=== PATIENT | male | born 1960 | race African-American/Black ===

== ENCOUNTER → 2023-03-02 | Day surgery (SDC) | payer BC ==
[~2023-03-02] VITALS: Ht 175.3 cm; Wt 101.5 kg
[~2023-03-02] MED LIST: CVS2500C PO; FLINCHW14 PO; LIDOCAINE 2% 100MG/5ML SDV (FOR ANES.) As Ordered ONE; NS 1,000 ML IV ONE; VITA100065 PO; VITA200012 PO; fentaNYL 100 MCG/2 ML INJECTION As Ordered ONE; propofoL 200 MG/20 ML VIAL As Ordered ONE
[2023-03-02 10:15] VITALS: BP 142/82; TEMP 97.2; O2SAT 97
== END | disposition home or self-care (01) ==
LOC: M OPP 06:57 → EDUNIT# 12:30
PROVIDERS: ATTEND Internal Medicine Gastroenterology
DX: C18.4 Malignant neoplasm of transverse colon (principal); K56.691 Other complete intestinal obstruction; D50.9 Iron deficiency anemia, unspecified; K57.30 Diverticulosis of large intestine without perforation or abscess without bleeding; K64.4 Residual hemorrhoidal skin tags; K64.8 Other hemorrhoids; D37.4 Neoplasm of uncertain behavior of colon; R19.5 Other fecal abnormalities; K29.70 Gastritis, unspecified, without bleeding; K31.89 Other diseases of stomach and duodenum; R93.3 Abnormal findings on diagnostic imaging of other parts of digestive tract; G47.9 Sleep disorder, unspecified
CPT/HCPCS: 43239; 45381; 45385; 88305; J3010

== ENCOUNTER 2023-04-15 09:34 | Outpatient (CLI) | payer BC ==
[2023-04-15] VITALS (7 sets, daily range): BP systolic 130–161; BP diastolic 60–74; TEMP 97.6–98.5; O2SAT 99–100
[~2023-04-15] VITALS: Ht 175.3 cm; Wt 94.8 kg
[~2023-04-15 09:34] MED LIST changes: -LIDOCAINE 2% 100MG/5ML SDV (FOR ANES.) As Ordered ONE; -NS 1,000 ML IV ONE; +VITA1CAP21 PO; +VITA400C49; -fentaNYL 100 MCG/2 ML INJECTION As Ordered ONE; -propofoL 200 MG/20 ML VIAL As Ordered ONE
[2023-04-15] MEDS ORDERED: NS 250 ML IV ONE (09:50)
[2023-04-15] MEDS: diphenhydrAMINE 25MG CAP PO ONE ×2 (10:00→10:03)
[2023-04-15] MEDS: ACETAMINOPHEN TAB 650MG DOSE (2X325MG) PO ONE ×2 (10:00→10:03)
== END 2023-04-15 14:30 ==
LOC: M INFU 09:34
PROVIDERS: ATTEND Internal Medicine Medical Oncology
DX: K31.89 Other diseases of stomach and duodenum (principal)
CPT/HCPCS: 36430; P9016

== ENCOUNTER 2023-04-22 13:50 | Emergency (ER) | payer BC ==
[~2023-04-22] VITALS: Ht 175.3 cm; Wt 90.7 kg
[2023-04-22 14:54] LABS: BASO % 0.2 % (0.0-1.0); EOS % 0.4 % (0.0-3.0); HEMATOCRIT 32.3 % (42.0-52.0); HEMOGLOBIN 9.7 g/dl (13.5-17.5); MEAN CORPUSCULAR HEMOGLOBIN 16.6 pg (27.0-33.0); MEAN CORPUSCULAR VOLUME 55.1 fl (80.0-96.0); MONO # 0.6 10^3/uL (0.0-0.8); MONO % 6.5 % (2.0-8.0); NEUTROPHILS # 5.4 10^3/uL (1.5-8.5); NEUTROPHILS % 59.7 % (36.0-66.0); PLATELET COUNT, AUTOMATED 493 10^3/uL (150-450); RED BLOOD COUNT 5.86 10^6/uL (4.30-6.10); WHITE BLOOD COUNT 9.1 10^3/uL (4.0-10.0)
[2023-04-22 15:03] LABS: LIPASE 20 U/L (12-53)
[2023-04-22 15:05] LABS: ALBUMIN 3.9 G/DL (3.2-5.2); ALKALINE PHOSPHATASE 95 U/L (46-116); ALT/SGPT 13 U/L (7.0-40); AST/SGOT 11 U/L (<34); BILIRUBIN,DIRECT 0.1 MG/DL (<0.4); BILIRUBIN,TOTAL 0.5 MG/DL (0.3-1.2); BLOOD UREA NITROGEN 33 MG/DL (9-23); CALCIUM LEVEL 9.1 MG/DL (8.3-10.6); CARBON DIOXIDE LEVEL 23 MMOL/L (20-31); CHLORIDE LEVEL 104 MMOL/L (98-107); CREATININE FOR GFR 1.37 MG/DL (0.70-1.30); GLOMERULAR FILTRATION RATE > 60.0 (>49); GLUCOSE, FASTING 116 MG/DL (74-106); SODIUM LEVEL 135 MMOL/L (136-145)
[2023-04-22] MEDS ORDERED: NS 1,000 ML IV ONE (15:10)
[2023-04-22] MEDS: GASTROGRAFIN SOLUTION 30ML PO SCH ×2 (15:34→16:05)
[2023-04-22] MEDS ORDERED: ISOVUE-370 76% 100ML VIAL As Ordered ONE (17:05)
[2023-04-22 18:45] VITALS: BP 137/76; TEMP 96.9; O2SAT 98
== END 2023-04-22 19:19 | disposition home or self-care (01) ==
LOC: M ED 13:50
DX: R93.3 Abnormal findings on diagnostic imaging of other parts of digestive tract (principal); R19.00 Intra-abdominal and pelvic swelling, mass and lump, unspecified site; R79.9 Abnormal finding of blood chemistry, unspecified; C18.9 Malignant neoplasm of colon, unspecified; Z91.013 Allergy to seafood
CPT/HCPCS: 74177; 80048; 80076; 83605; 83690; 85025; 93005; 96360; 99284; Q9963; Q9967

== ENCOUNTER → 2023-04-27 | Outpatient (CLI) | payer BC | LOC: M PLARAD 07:53 | PROVIDERS: ATTEND Internal Medicine Gastroenterology | DX: R93.3 Abnormal findings on diagnostic imaging of other parts of digestive tract (principal); C18.4 Malignant neoplasm of transverse colon; D37.1 Neoplasm of uncertain behavior of stomach ==

== ENCOUNTER 2023-05-17 12:07 | Emergency (ER) | payer BC ==
[~2023-05-17] VITALS: Ht 175.3 cm; Wt 90.9 kg
[2023-05-17 12:57] LABS: BASO % 0.2 % (0.0-1.0); EOS # 0.1 10^3/uL (0.0-0.5); EOS % 0.3 % (0.0-3.0); HEMATOCRIT 37.5 % (42.0-52.0); HEMOGLOBIN 10.6 g/dl (13.5-17.5); LYMPH # 2.7 10^3/uL (1.5-5.0); LYMPH % 15.9 % (24.0-44.0); MEAN CORPUSCULAR HEMOGLOBIN 16.5 pg (27.0-33.0); MEAN CORPUSCULAR HGB CONC 28.3 g/dl (32.0-36.5); MEAN CORPUSCULAR VOLUME 58.2 fl (80.0-96.0); MONO # 0.6 10^3/uL (0.0-0.8); MONO % 3.3 % (2.0-8.0); NEUTROPHILS # 13.7 10^3/uL (1.5-8.5); NEUTROPHILS % 79.8 % (36.0-66.0); PLATELET COUNT, AUTOMATED 527 10^3/uL (150-450); RED BLOOD COUNT 6.44 10^6/uL (4.30-6.10); WHITE BLOOD COUNT 17.2 10^3/uL (4.0-10.0)
[2023-05-17 13:14] LABS: ETHYL ALCOHOL (ETHANOL) < 0.003 % (0.000-0.010)
[2023-05-17 13:16] LABS: ALBUMIN 3.9 G/DL (3.2-5.2); ALKALINE PHOSPHATASE 92 U/L (46-116); ALT/SGPT 16 U/L (7.0-40); AST/SGOT 16 U/L (<34); BILIRUBIN,DIRECT 0.1 MG/DL (<0.4); BILIRUBIN,TOTAL 0.4 MG/DL (0.3-1.2); BLOOD UREA NITROGEN 13 MG/DL (9-23); CALCIUM LEVEL 9.4 MG/DL (8.3-10.6); CARBON DIOXIDE LEVEL 24 MMOL/L (20-31); CHLORIDE LEVEL 103 MMOL/L (98-107); CK-MB VALUE MASS 1.9 NG/ML (<3.6); CREATININE FOR GFR 1.13 MG/DL (0.70-1.30); GLOMERULAR FILTRATION RATE > 60.0 (>49); GLUCOSE, FASTING 180 MG/DL (74-106); POTASSIUM SERUM 4.7 MMOL/L (3.5-5.1); SALICYLATE LEVEL < 3.0 MG/DL (<30); SODIUM LEVEL 136 MMOL/L (136-145); TOTAL PROTEIN 7.5 G/DL (5.7-8.2)
[2023-05-17 13:18] LABS: THYROID STIMULATING HORMONE 7.966 uIU/ML (0.55-4.78)
[2023-05-17 13:19] LABS: CPK CREATINE PHOSPHOKINASE 51 U/L (46-171); MB/CK RELATIVE INDEX 3.72 (< OR =4)
[2023-05-17] MEDS ORDERED: ISOVUE-370 76% 100ML VIAL As Ordered ONE (13:21)
[2023-05-17 13:24] LABS: RSV AMPLIFICATION NEGATIVE (NEGATIVE)
[2023-05-17] MEDS: NS 1,000 ML IV ONE (13:26)
[2023-05-17] MEDS: fentaNYL 100 MCG/2 ML INJECTION IV PRN (13:29)
[2023-05-17 13:35] LABS: PLATELET CLUMPS SMALL AMT; PLATELET ESTIMATE INCREASED (NORMAL)
[2023-05-17 13:36] LABS: ANISOCYTOSIS 4+; HYPOCHROMASIA 2+; POLYCHROMASIA 1+
[2023-05-17 13:37] LABS: SCHISTOCYTES 2+
[2023-05-17 13:40] LABS: OVALOCYTES 1+
[2023-05-17 13:41] LABS: TEAR DROP CELLS 1+
[2023-05-17 13:42] LABS: POIKILOCYTOSIS 2+
[2023-05-17 13:44] LABS: MICROCYTOSIS 2+
[2023-05-17] MEDS ORDERED: VITA-158 PO (14:59)
[2023-05-17] MEDS ORDERED: CHOL25TA2 PO (14:59)
[2023-05-17] MEDS ORDERED: VITA500T41 PO (14:59)
[2023-05-17] MEDS ORDERED: HOME MED LIST COMPLETE! XX SCH (15:00)
[2023-05-17 15:39] LABS: CK-MB VALUE MASS 1.8 NG/ML (<3.6)
[2023-05-17 15:44] LABS: MB/CK RELATIVE INDEX 3.67 (< OR =4)
[2023-05-17 16:15] VITALS: BP 124/65; O2SAT 98
[2023-05-17] MEDS: metroNIDAZOLE (FLAGYL) 500MG TABLET PO ONE (16:26)
[2023-05-17] MEDS: CIPROFLOXACIN 500MG TABLET PO ONE (16:26)
[2023-05-17 16:32] VITALS: TEMP 97.6
[2023-05-17] MEDS ORDERED: CIPR-249 PO (19:31)
[2023-05-17] MEDS ORDERED: METR-265 PO (19:31)
== END 2023-05-17 16:42 | disposition home or self-care (01) ==
LOC: M ED 12:07
DX: R55 Syncope and collapse (principal); K52.9 Noninfective gastroenteritis and colitis, unspecified; C18.9 Malignant neoplasm of colon, unspecified; Z91.013 Allergy to seafood; Z79.2 Long term (current) use of antibiotics; Z79.899 Other long term (current) drug therapy
CPT/HCPCS: 70450; 71045; 74177; 80047; 80048; 80076; 80143; 81001; 82077; 82140; 82550; 82553; 83605; 83930; 84443; 84484; 85025; 87040; 87086; 87507; 87631; 93005; 93041; 94760; 96361; 96374; 99285; J3010; Q9967

== ENCOUNTER → 2023-05-21 | Outpatient (CLI) | payer BC ==
[~2023-05-21] MED LIST changes: +CHOL25TA2 PO; +CIPR-249 PO; +LIDOCAINE 1% MDV 20ML VIAL As Ordered ONE; +METR-265 PO; +MIDAZOLAM INJ 2MG/2ML VIAL As Ordered ONE; +VITA-158 PO; +VITA500T41 PO; +fentaNYL 100 MCG/2 ML INJECTION As Ordered ONE
[2023-05-21 13:25] VITALS: TEMP 97.6
[2023-05-21 16:16] VITALS: BP 124/68; O2SAT 98
== END ==
LOC: M IRPRO 13:17
PROVIDERS: ATTEND Specialist
DX: C78.7 Secondary malignant neoplasm of liver and intrahepatic bile duct (principal); D37.6 Neoplasm of uncertain behavior of liver, gallbladder and bile ducts; C18.9 Malignant neoplasm of colon, unspecified
CPT/HCPCS: 47000; 76942; 88305; 99152; J2250; J3010

== ENCOUNTER 2023-06-03 05:51 | Day surgery (SDC) | payer BC ==
[~2023-06-03] VITALS: Ht 175.3 cm; Wt 89.4 kg
[~2023-06-03 05:51] MED LIST changes: -LIDOCAINE 1% MDV 20ML VIAL As Ordered ONE; -MIDAZOLAM INJ 2MG/2ML VIAL As Ordered ONE; -fentaNYL 100 MCG/2 ML INJECTION As Ordered ONE
[2023-06-03] MEDS ORDERED: LR 1,000 ML IV SCH (06:40)
[2023-06-03] MEDS ORDERED: LIDOCAINE 1% SDV 5ML VIAL SC PRN (06:40)
[2023-06-03] MEDS ORDERED: fentaNYL 100 MCG/2 ML INJECTION As Ordered ONE (07:24)
[2023-06-03] MEDS ORDERED: propofoL 200 MG/20 ML VIAL As Ordered ONE (07:24)
[2023-06-03] MEDS ORDERED: dexmedeTOMIDine (4MCG/ML)200MCG/50ML BTL (PRECEDEX) As Ordered ONE (07:24)
[2023-06-03] MEDS ORDERED: LIDOCAINE 2% 100MG/5ML SDV (FOR ANES.) As Ordered ONE (07:24)
[2023-06-03] MEDS ORDERED: MIDAZOLAM INJ 2MG/2ML VIAL As Ordered ONE (07:25)
[2023-06-03] MEDS: ceFAZolin SOD 2 GM in IV 1 EA IV ONE (07:56)
[2023-06-03] MEDS ORDERED: KETAMINE HCL 200MG/20ML VIAL As Ordered ONE (08:06)
[2023-06-03] MEDS: LIDOCAINE 1% SDV 30ML VIAL As Ordered ONE (08:54)
[2023-06-03] MEDS ORDERED: KETOROLAC 60MG 2ML VIAL As Ordered ONE (08:57)
[2023-06-03] MEDS: HEPARIN SOD (PORCINE) 5000UNITS/ML 1ML VIAL/SYRINGE As Ordered ONE (09:00)
[2023-06-03 10:40] VITALS: BP 148/74; TEMP 97.4; O2SAT 98
[2023-06-04] MEDS ORDERED: ACET500P3 PO (14:53)
== END 2023-06-03 10:47 | disposition home or self-care (01) ==
LOC: M SDC 05:51
PROVIDERS: ATTEND Surgery
DX: C18.9 Malignant neoplasm of colon, unspecified (principal); R06.83 Snoring
CPT/HCPCS: 36561; 71045; 76000; C1788; J0665; J0690; J1885; J2250; J3010

== ENCOUNTER 2023-08-08 23:00 | Inpatient (IN) | payer BC ==
[~2023-08-08] VITALS: Ht 175.3 cm; Wt 94.9 kg
[~2023-08-08 23:00] MED LIST changes: +ACET500P3 PO; +LIDO30CR18 TOP; +MIRA3350 PO; +ONDA-84 PO; +PROC10TA5 PO
[2023-08-08] MEDS: NS 1,000 ML IV ONE (23:40)
[2023-08-08 23:50] LABS: BASO % 0.4 % (0.0-1.0); EOS # 0.1 10^3/uL (0.0-0.5); EOS % 1.4 % (0.0-3.0); HEMATOCRIT 39.7 % (42.0-52.0); HEMOGLOBIN 12.9 g/dl (13.5-17.5); LYMPH # 3.9 10^3/uL (1.5-5.0); MEAN CORPUSCULAR HEMOGLOBIN 21.6 pg (27.0-33.0); MEAN CORPUSCULAR HGB CONC 32.5 g/dl (32.0-36.5); MEAN CORPUSCULAR VOLUME 66.5 fl (80.0-96.0); MONO # 1.3 10^3/uL (0.0-0.8); MONO % 13.2 % (2.0-8.0); NEUTROPHILS # 4.3 10^3/uL (1.5-8.5); NEUTROPHILS % 44.7 % (36.0-66.0); PLATELET COUNT, AUTOMATED 251 10^3/uL (150-450); RED BLOOD COUNT 5.97 10^6/uL (4.30-6.10); WHITE BLOOD COUNT 9.7 10^3/uL (4.0-10.0)
[2023-08-09] VITALS (7 sets, daily range): BP systolic 152–190; BP diastolic 94–120; TEMP 97.1–98.1; O2SAT 95–98
[2023-08-09 00:13] LABS: INR 1.14; PARTIAL THROMBOPLASTIN TIME 23.1 SECONDS (24.8-34.2); PROTHROMBIN TIME 14.2 SECONDS (12.5-14.5)
[2023-08-09 00:14] LABS: CK-MB VALUE MASS 3.9 NG/ML (<3.6); LIPASE 23 U/L (12-53)
[2023-08-09 00:15] LABS: CPK CREATINE PHOSPHOKINASE 88 U/L (46-171); MB/CK RELATIVE INDEX 4.43 (< OR =4)
[2023-08-09 00:16] LABS: ALBUMIN 3.8 G/DL (3.2-5.2); ALKALINE PHOSPHATASE 124 U/L (46-116); ALT/SGPT 17 U/L (7.0-40); AST/SGOT 11 U/L (<34); BILIRUBIN,DIRECT 0.1 MG/DL (<0.4); BILIRUBIN,TOTAL 0.5 MG/DL (0.3-1.2); BLOOD UREA NITROGEN 16 MG/DL (9-23); CALCIUM LEVEL 9.4 MG/DL (8.3-10.6); CARBON DIOXIDE LEVEL 26 MMOL/L (20-31); CHLORIDE LEVEL 104 MMOL/L (98-107); CREATININE FOR GFR 0.88 MG/DL (0.70-1.30); GLOMERULAR FILTRATION RATE > 60.0 (>49); GLUCOSE, FASTING 179 MG/DL (74-106); POTASSIUM SERUM 4.3 MMOL/L (3.5-5.1); SODIUM LEVEL 137 MMOL/L (136-145); TOTAL PROTEIN 7.2 G/DL (5.7-8.2)
[2023-08-09] MEDS ORDERED: ISOVUE-370 76% 100ML VIAL As Ordered ONE (00:42)
[2023-08-09] MEDS ORDERED: LIDO30CR18 TOP (00:44)
[2023-08-09] MEDS ORDERED: ONDA-84 PO (00:44)
[2023-08-09] MEDS ORDERED: PROC10TA5 PO (00:44)
[2023-08-09] MEDS ORDERED: HOME MED LIST COMPLETE! XX SCH (00:45)
[2023-08-09 01:07] LABS: ANISOCYTOSIS 2+; HYPOCHROMASIA 1+; PLATELET ESTIMATE NORMAL (NORMAL)
[2023-08-09 01:08] LABS: MICROCYTOSIS 1+; OVALOCYTES 1+
[2023-08-09] MEDS ORDERED: ONDANSETRON 4MG 2ML VIAL As Ordered ONE (02:05)
[2023-08-09 02:17] LABS: CK-MB VALUE MASS 5.4 NG/ML (<3.6)
[2023-08-09 02:18] LABS: MB/CK RELATIVE INDEX 6.06 (< OR =4)
[2023-08-09] MEDS: MORPHINE 4 MG/ML 1ML VIAL IV ONE (02:32)
[2023-08-09] MEDS: ONDANSETRON 4MG 2ML VIAL IV ONE (02:38)
[2023-08-09] MEDS: NS 1,000 ML IV ONE (04:55)
[2023-08-09] MEDS ORDERED: HYDROMORPHONE HCL 0.5 MG/ 0.5 ML SYRINGE IV PRN (05:20)
[2023-08-09] MEDS: NS 1,000 ML IV SCH (05:25)
[2023-08-09] MEDS ORDERED: ONDANSETRON 4MG 2ML VIAL IV PRN (06:00)
[2023-08-09 07:22] LABS: HEMATOCRIT 37.1 % (42.0-52.0)
[2023-08-09] MEDS: KCL 20MEQ in NS 1000ML 1,000 ML IV SCH (07:37)
[2023-08-09 07:49] LABS: BLOOD UREA NITROGEN 15 MG/DL (9-23); CALCIUM LEVEL 8.4 MG/DL (8.3-10.6); CARBON DIOXIDE LEVEL 24 MMOL/L (20-31); CHLORIDE LEVEL 107 MMOL/L (98-107); CREATININE FOR GFR 0.78 MG/DL (0.70-1.30); GLOMERULAR FILTRATION RATE > 60.0 (>49); GLUCOSE, FASTING 155 MG/DL (74-106); POTASSIUM SERUM 4.7 MMOL/L (3.5-5.1); SODIUM LEVEL 138 MMOL/L (136-145)
[2023-08-09] MEDS: HEPARIN SOD (PORCINE) 5000UNITS/ML 1ML VIAL/SYRINGE SC SCH (08:26)
[2023-08-09 08:52] LABS: MAGNESIUM LEVEL 1.8 MG/DL (1.8-2.4)
[2023-08-09] MEDS: PANTOPRAZOLE 40MG VIAL IV SCH (10:05)
[2023-08-09] MEDS: METOPROLOL TART 25 MG TABLET NG SCH (10:06)
[2023-08-09] MEDS: DOCUSATE SODIUM 100MG CAPSULE PO SCH (10:07)
[2023-08-09] MEDS: METOPROLOL TART 25 MG TABLET PO SCH (10:16)
[2023-08-10 03:32] VITALS: BP 166/92; TEMP 97.2; O2SAT 95
[2023-08-10 08:03] VITALS: BP 155/89; TEMP 97; O2SAT 99
[2023-08-10 08:09] VITALS: BP 148/90
[2023-08-10 09:59] VITALS: BP 148/90
[2023-08-10 11:58] VITALS: BP 164/90; TEMP 97.8; O2SAT 98
[2023-08-10] MEDS ORDERED: METO1TAB87 PO (14:11)
[2023-08-10] MEDS ORDERED: HYDR-3490 PO (14:11)
[2023-08-10] MEDS ORDERED: MIRA3350 PO (14:11)
== END 2023-08-10 16:20 | disposition home or self-care (01) | DRG 247 ==
LOC: M ED 23:00 → M ED INP 08-09 03:21 → M PCU 08-09 08:02
PROVIDERS: ADMIT Internal Medicine; ATTEND Internal Medicine
DX: K56.699 Other intestinal obstruction unspecified as to partial versus complete obstruction (principal); C78.7 Secondary malignant neoplasm of liver and intrahepatic bile duct; C18.2 Malignant neoplasm of ascending colon; C18.4 Malignant neoplasm of transverse colon; I10 Essential (primary) hypertension; D64.9 Anemia, unspecified; I95.9 Hypotension, unspecified; R61 Generalized hyperhidrosis; Z83.3 Family history of diabetes mellitus; R55 Syncope and collapse; Z79.899 Other long term (current) drug therapy; Z91.013 Allergy to seafood

== ENCOUNTER 2023-08-21 19:07 | Inpatient (IN) | payer BC ==
[~2023-08-21] VITALS: Ht 175.3 cm; Wt 90.9 kg
[~2023-08-21 19:07] MED LIST changes: +ANAS0.12 PO; +HYDR-3490 PO; +METO1TAB87 PO
[2023-08-21] MEDS: ONDANSETRON 4MG 2ML VIAL IV ONE (20:08)
[2023-08-21] MEDS: NS 1,000 ML IV ONE (20:09)
[2023-08-21 20:45] LABS: BASO % 0.3 % (0.0-1.0); EOS % 0.3 % (0.0-3.0); HEMOGLOBIN 15.7 g/dl (13.5-17.5); LYMPH % 24.9 % (24.0-44.0); MEAN CORPUSCULAR HEMOGLOBIN 22.4 pg (27.0-33.0); MEAN CORPUSCULAR HGB CONC 32.7 g/dl (32.0-36.5); MEAN CORPUSCULAR VOLUME 68.4 fl (80.0-96.0); MONO # 0.8 10^3/uL (0.0-0.8); MONO % 6.8 % (2.0-8.0); NEUTROPHILS # 8.1 10^3/uL (1.5-8.5); NEUTROPHILS % 67.4 % (36.0-66.0); PLATELET COUNT, AUTOMATED 327 10^3/uL (150-450); RED BLOOD COUNT 7.02 10^6/uL (4.30-6.10)
[2023-08-21 20:58] LABS: PLATELET ESTIMATE NORMAL (NORMAL)
[2023-08-21 20:59] LABS: ANISOCYTOSIS 2+; MICROCYTOSIS 2+
[2023-08-21 21:00] LABS: LIPASE 26 U/L (12-53)
[2023-08-21 21:01] LABS: POIKILOCYTOSIS 1+
[2023-08-21 21:33] LABS: ALBUMIN 4.4 G/DL (3.2-5.2); ALKALINE PHOSPHATASE 159 U/L (46-116); ALT/SGPT 21 U/L (7.0-40); AST/SGOT 17 U/L (<34); BILIRUBIN,DIRECT < 0.1 MG/DL (<0.4); BILIRUBIN,TOTAL 0.4 MG/DL (0.3-1.2); BLOOD UREA NITROGEN 16 MG/DL (9-23); CALCIUM LEVEL 10.8 MG/DL (8.3-10.6); CARBON DIOXIDE LEVEL 30 MMOL/L (20-31); CHLORIDE LEVEL 96 MMOL/L (98-107); CREATININE FOR GFR 1.27 MG/DL (0.70-1.30); GLOMERULAR FILTRATION RATE > 60.0 (>49); GLUCOSE, FASTING 177 MG/DL (74-106); POTASSIUM SERUM 4.3 MMOL/L (3.5-5.1); SODIUM LEVEL 135 MMOL/L (136-145); TOTAL PROTEIN 8.4 G/DL (5.7-8.2)
[2023-08-21] MEDS: HYDROMORPHONE HCL 0.5 MG/ 0.5 ML SYRINGE IV ONE (21:52)
[2023-08-21] MEDS ORDERED: GASTROGRAFIN SOLUTION 30ML As Ordered ONE (22:01)
[2023-08-21] MEDS ORDERED: MM S100C PO (22:06)
[2023-08-21] MEDS ORDERED: HYDR-3490 PO (22:06)
[2023-08-21] MEDS ORDERED: MILKSUS3 PO (22:06)
[2023-08-21] MEDS ORDERED: POLY17PO18 PO (22:06)
[2023-08-21] MEDS ORDERED: HYOS1TAB PO (22:06)
[2023-08-21] MEDS ORDERED: METO1TAB87 PO (22:06)
[2023-08-21] MEDS ORDERED: HOME MED LIST COMPLETE! XX SCH (22:10)
[2023-08-21] MEDS: GASTROGRAFIN SOLUTION 30ML PO SCH (22:11)
[2023-08-21] MEDS ORDERED: ISOVUE-370 76% 100ML VIAL As Ordered ONE (23:14)
[2023-08-22] MEDS ORDERED: ONDANSETRON 4MG 2ML VIAL IV PRN (00:45)
[2023-08-22] MEDS: MORPHINE 4 MG/ML 1ML VIAL IV PRN (01:24)
[2023-08-22] MEDS: LR 1,000 ML IV SCH (01:25)
[2023-08-22 02:00] VITALS: BP 132/80; TEMP 97.8; O2SAT 94
[2023-08-22 06:35] VITALS: BP 136/86; TEMP 97.2; O2SAT 98
[2023-08-22 07:46] LABS: BASO % 0.1 % (0.0-1.0); EOS % 0.1 % (0.0-3.0); HEMATOCRIT 42.4 % (42.0-52.0); HEMOGLOBIN 13.8 g/dl (13.5-17.5); LYMPH # 2.3 10^3/uL (1.5-5.0); LYMPH % 31.5 % (24.0-44.0); MEAN CORPUSCULAR HEMOGLOBIN 22.2 pg (27.0-33.0); MEAN CORPUSCULAR HGB CONC 32.5 g/dl (32.0-36.5); MEAN CORPUSCULAR VOLUME 68.2 fl (80.0-96.0); MONO # 1.1 10^3/uL (0.0-0.8); MONO % 14.5 % (2.0-8.0); NEUTROPHILS # 3.9 10^3/uL (1.5-8.5); NEUTROPHILS % 53.7 % (36.0-66.0); PLATELET COUNT, AUTOMATED 273 10^3/uL (150-450); RED BLOOD COUNT 6.22 10^6/uL (4.30-6.10); WHITE BLOOD COUNT 7.3 10^3/uL (4.0-10.0)
[2023-08-22 08:12] LABS: ANISOCYTOSIS 3+
[2023-08-22 08:13] LABS: MICROCYTOSIS 3+
[2023-08-22 08:14] LABS: POIKILOCYTOSIS 1+; SCHISTOCYTES 1+
[2023-08-22 08:16] LABS: ALBUMIN 3.4 G/DL (3.2-5.2); ALKALINE PHOSPHATASE 128 U/L (46-116); ALT/SGPT 16 U/L (7.0-40); AST/SGOT < 8 U/L (<34); BILIRUBIN,TOTAL 0.3 MG/DL (0.3-1.2); BLOOD UREA NITROGEN 23 MG/DL (9-23); CALCIUM LEVEL 9.5 MG/DL (8.3-10.6); CARBON DIOXIDE LEVEL 30 MMOL/L (20-31); CHLORIDE LEVEL 99 MMOL/L (98-107); GLOMERULAR FILTRATION RATE > 60.0 (>49); GLUCOSE, FASTING 149 MG/DL (74-106); MAGNESIUM LEVEL 2.6 MG/DL (1.8-2.4); SODIUM LEVEL 135 MMOL/L (136-145); TOTAL PROTEIN 6.9 G/DL (5.7-8.2)
[2023-08-22 08:19] LABS: PLATELET ESTIMATE NORMAL (NORMAL)
[2023-08-22] MEDS: ACETAMINOPHEN *IV* 1,000 MG in IV 1 EA IV PRN (08:39)
[2023-08-22 10:00] VITALS: BP 138/87; TEMP 98.1; O2SAT 84
[2023-08-22] MEDS: ENOXAPARIN 40MG/0.4ML SYRINGE (J1650 PER 10MG) SC SCH (12:24)
[2023-08-22 14:03] VITALS: BP 148/92; TEMP 97.9; O2SAT 92
[2023-08-22 18:45] VITALS: BP 151/94; TEMP 97.3; O2SAT 93
[2023-08-22 20:07] VITALS: BP 153/90; TEMP 97.9; O2SAT 88
[2023-08-23] VITALS (8 sets, daily range): BP systolic 137–174; BP diastolic 82–106; TEMP 97.3–98.4; O2SAT 90–97
[2023-08-23 06:04] LABS: BASO % 0.3 % (0.0-1.0); EOS % 0.5 % (0.0-3.0); HEMATOCRIT 40.9 % (42.0-52.0); HEMOGLOBIN 13.1 g/dl (13.5-17.5); LYMPH # 2.2 10^3/uL (1.5-5.0); LYMPH % 37.8 % (24.0-44.0); MEAN CORPUSCULAR HEMOGLOBIN 22.3 pg (27.0-33.0); MEAN CORPUSCULAR VOLUME 69.6 fl (80.0-96.0); MONO % 16.8 % (2.0-8.0); NEUTROPHILS # 2.6 10^3/uL (1.5-8.5); NEUTROPHILS % 44.6 % (36.0-66.0); PLATELET COUNT, AUTOMATED 248 10^3/uL (150-450); RED BLOOD COUNT 5.88 10^6/uL (4.30-6.10); WHITE BLOOD COUNT 5.9 10^3/uL (4.0-10.0)
[2023-08-23 06:31] LABS: ALBUMIN 3.2 G/DL (3.2-5.2); ALKALINE PHOSPHATASE 112 U/L (46-116); ALT/SGPT 13 U/L (7.0-40); AST/SGOT < 8 U/L (<34); BILIRUBIN,TOTAL 0.4 MG/DL (0.3-1.2); BLOOD UREA NITROGEN 21 MG/DL (9-23); CALCIUM LEVEL 8.6 MG/DL (8.3-10.6); CARBON DIOXIDE LEVEL 31 MMOL/L (20-31); CHLORIDE LEVEL 101 MMOL/L (98-107); CREATININE FOR GFR 1.04 MG/DL (0.70-1.30); GLOMERULAR FILTRATION RATE > 60.0 (>49); GLUCOSE, FASTING 134 MG/DL (74-106); MAGNESIUM LEVEL 2.3 MG/DL (1.8-2.4); POTASSIUM SERUM 4.6 MMOL/L (3.5-5.1); SODIUM LEVEL 136 MMOL/L (136-145); TOTAL PROTEIN 6.3 G/DL (5.7-8.2)
[2023-08-23] MEDS: METOPROLOL TART 25 MG TABLET PO SCH (08:01)
[2023-08-24 00:10] VITALS: BP 112/66; TEMP 98.1; O2SAT 88
[2023-08-24 04:09] VITALS: BP 132/81; TEMP 97.7; O2SAT 90
[2023-08-24 06:03] LABS: BASO % 0.5 % (0.0-1.0); EOS # 0.1 10^3/uL (0.0-0.5); EOS % 1.6 % (0.0-3.0); HEMATOCRIT 40.5 % (42.0-52.0); HEMOGLOBIN 13.1 g/dl (13.5-17.5); LYMPH # 2.5 10^3/uL (1.5-5.0); LYMPH % 39.8 % (24.0-44.0); MEAN CORPUSCULAR HEMOGLOBIN 22.7 pg (27.0-33.0); MEAN CORPUSCULAR HGB CONC 32.3 g/dl (32.0-36.5); MEAN CORPUSCULAR VOLUME 70.1 fl (80.0-96.0); NEUTROPHILS # 2.7 10^3/uL (1.5-8.5); NEUTROPHILS % 41.9 % (36.0-66.0); PLATELET COUNT, AUTOMATED 235 10^3/uL (150-450); RED BLOOD COUNT 5.78 10^6/uL (4.30-6.10); WHITE BLOOD COUNT 6.4 10^3/uL (4.0-10.0)
[2023-08-24 06:26] LABS: ALBUMIN 3.1 G/DL (3.2-5.2); ALKALINE PHOSPHATASE 101 U/L (46-116); ALT/SGPT 14 U/L (7.0-40); AST/SGOT 9 U/L (<34); BILIRUBIN,TOTAL 0.4 MG/DL (0.3-1.2); BLOOD UREA NITROGEN 12 MG/DL (9-23); CARBON DIOXIDE LEVEL 28 MMOL/L (20-31); CHLORIDE LEVEL 103 MMOL/L (98-107); CREATININE FOR GFR 0.88 MG/DL (0.70-1.30); GLOMERULAR FILTRATION RATE > 60.0 (>49); GLUCOSE, FASTING 99 MG/DL (74-106); MAGNESIUM LEVEL 2.2 MG/DL (1.8-2.4); POTASSIUM SERUM 4.5 MMOL/L (3.5-5.1); SODIUM LEVEL 137 MMOL/L (136-145); TOTAL PROTEIN 6.4 G/DL (5.7-8.2)
[2023-08-24 08:00] VITALS: BP 130/80; TEMP 97.7; O2SAT 90
[2023-08-24 12:00] VITALS: BP 138/77; TEMP 97.7; O2SAT 96
[2023-08-24 16:00] VITALS: BP 142/89; TEMP 97.7; O2SAT 97
[2023-08-24 20:00] VITALS: BP 142/88; TEMP 97.7; O2SAT 98
[2023-08-25 02:00] VITALS: BP 147/86; TEMP 98.1; O2SAT 98
[2023-08-25 04:30] VITALS: BP 141/85; TEMP 98.1; O2SAT 97
[2023-08-25 06:12] LABS: BASO % 0.3 % (0.0-1.0); EOS # 0.1 10^3/uL (0.0-0.5); HEMATOCRIT 38.9 % (42.0-52.0); HEMOGLOBIN 12.5 g/dl (13.5-17.5); LYMPH # 3.1 10^3/uL (1.5-5.0); LYMPH % 45.3 % (24.0-44.0); MEAN CORPUSCULAR HEMOGLOBIN 22.4 pg (27.0-33.0); MEAN CORPUSCULAR HGB CONC 32.1 g/dl (32.0-36.5); MEAN CORPUSCULAR VOLUME 69.6 fl (80.0-96.0); MONO # 0.9 10^3/uL (0.0-0.8); MONO % 13.1 % (2.0-8.0); NEUTROPHILS # 2.7 10^3/uL (1.5-8.5); NEUTROPHILS % 38.7 % (36.0-66.0); PLATELET COUNT, AUTOMATED 222 10^3/uL (150-450); RED BLOOD COUNT 5.59 10^6/uL (4.30-6.10); WHITE BLOOD COUNT 6.9 10^3/uL (4.0-10.0)
[2023-08-25 06:40] LABS: ALKALINE PHOSPHATASE 96 U/L (46-116); ALT/SGPT 17 U/L (7.0-40); AST/SGOT 14 U/L (<34); BILIRUBIN,TOTAL 0.3 MG/DL (0.3-1.2); BLOOD UREA NITROGEN 10 MG/DL (9-23); CALCIUM LEVEL 9.3 MG/DL (8.3-10.6); CARBON DIOXIDE LEVEL 29 MMOL/L (20-31); CHLORIDE LEVEL 103 MMOL/L (98-107); CREATININE FOR GFR 0.89 MG/DL (0.70-1.30); GLOMERULAR FILTRATION RATE > 60.0 (>49); GLUCOSE, FASTING 91 MG/DL (74-106); MAGNESIUM LEVEL 1.8 MG/DL (1.8-2.4); POTASSIUM SERUM 4.4 MMOL/L (3.5-5.1); SODIUM LEVEL 138 MMOL/L (136-145); TOTAL PROTEIN 6.2 G/DL (5.7-8.2)
[2023-08-25 08:00] VITALS: BP 138/84; TEMP 97.5; O2SAT 99
[2023-08-25 08:27] VITALS: BP 151/93
[2023-08-25] MEDS ORDERED: SIME80CH6 PO (11:52)
[2023-08-25 12:00] VITALS: BP 144/89; TEMP 98.4; O2SAT 99
[2023-08-27] MEDS ORDERED: MIRA3350 PO (08:26)
== END 2023-08-25 12:30 | disposition home or self-care (01) | DRG 240 ==
LOC: M ED 19:07 → M ED INP 08-22 00:34 → M MS5PR 08-22 01:54
PROVIDERS: ADMIT Preventive Medicine Undersea and Hyperbaric Medicine; ATTEND Internal Medicine
DX: C18.4 Malignant neoplasm of transverse colon (principal); C78.7 Secondary malignant neoplasm of liver and intrahepatic bile duct; I10 Essential (primary) hypertension; Z79.899 Other long term (current) drug therapy; Z91.013 Allergy to seafood; D50.9 Iron deficiency anemia, unspecified; Z79.69 Long term (current) use of other immunomodulators and immunosuppressants

== ENCOUNTER 2023-08-28 11:47 | Inpatient (IN) | payer BC ==
[~2023-08-28] VITALS: Ht 175.3 cm; Wt 92.0 kg
[~2023-08-28 11:47] MED LIST changes: +HYOS1TAB PO; +MILKSUS3 PO; +MM S100C PO; +POLY17PO18 PO; +SIME80CH6 PO
[2023-08-28] MEDS: ALVIMOPAN 12 MG CAPSULE (ENTEREG) PO ONE (12:26)
[2023-08-28] MEDS: CelecoXIB 400 MG CAP PO ONE (12:26)
[2023-08-28] MEDS ORDERED: SIME80CH6 PO (12:57)
[2023-08-28] MEDS ORDERED: HOME MED LIST COMPLETE! XX SCH (13:00)
[2023-08-28] MEDS ORDERED: fentaNYL 250 MCG/5 ML INJECTION As Ordered ONE (13:18)
[2023-08-28] MEDS ORDERED: dexmedeTOMIDine (4MCG/ML)200MCG/50ML BTL (PRECEDEX) As Ordered ONE (13:18)
[2023-08-28] MEDS ORDERED: LIDOCAINE 2% 100MG/5ML SDV (FOR ANES.) As Ordered ONE (13:18)
[2023-08-28] MEDS ORDERED: SUGAMMADEX SODIUM 500 MG/5 ML VIAL (BRIDION) As Ordered ONE (13:18)
[2023-08-28] MEDS ORDERED: MIDAZOLAM INJ 2MG/2ML VIAL As Ordered ONE (13:18)
[2023-08-28] MEDS ORDERED: ONDANSETRON 4MG 2ML VIAL As Ordered ONE (13:18)
[2023-08-28] MEDS ORDERED: ROCURONIUM BROMIDE 50MG/5ML VIAL As Ordered ONE (13:18)
[2023-08-28] MEDS ORDERED: propofoL 200 MG/20 ML VIAL As Ordered ONE (13:18)
[2023-08-28] MEDS ORDERED: KETOROLAC 60MG 2ML VIAL As Ordered ONE (13:23)
[2023-08-28] MEDS: metroNIDAZOLE 500 MG in IV 1 EA IV ONE (14:02)
[2023-08-28] MEDS: HEPARIN SOD (PORCINE) 5000UNITS/ML 1ML VIAL/SYRINGE SQ ONE (14:08)
[2023-08-28] MEDS ORDERED: PHENYLephrine 500MCG 5ML (100MCG/ML) SYRINGE As Ordered ONE (14:13)
[2023-08-28] MEDS: ceFAZolin SOD 2 GM in IV 1 EA IV ONE (14:30)
[2023-08-28] MEDS ORDERED: HYDROmorphone HCL 2MG/ML 1ML VIAL As Ordered ONE (15:18)
[2023-08-28] MEDS: LIDOCAINE 1% SDV 30ML VIAL As Ordered ONE (18:05)
[2023-08-28] MEDS ORDERED: ONDANSETRON 4MG 2ML VIAL IV PRN ×2 (18:15→18:35)
[2023-08-28] MEDS ORDERED: METOCLOPRAMIDE INJ 10MG/2ML VIAL IV PRN (18:15)
[2023-08-28] MEDS: oxyCODONE 5MG TAB PO PRN (18:49)
[2023-08-28] MEDS: fentaNYL 100 MCG/2 ML INJECTION IV PRN (18:54)
[2023-08-28 19:09] VITALS: BP 141/77; TEMP 98.1; O2SAT 97
[2023-08-28] MEDS: LR 1,000 ML IV SCH ×2 (19:28→19:54)
[2023-08-28] MEDS: DOCUSATE SODIUM 100MG CAPSULE PO SCH (19:53)
[2023-08-28] MEDS: KETOROLAC 30 MG/ML 1ML VIAL IV SCH (19:53)
[2023-08-28] MEDS: MORPHINE 4 MG/ML 1ML VIAL IV PRN (19:53)
[2023-08-28 20:45] VITALS: BP 127/84; TEMP 97.3; O2SAT 97
[2023-08-28 21:45] VITALS: BP 132/86; TEMP 97.3; O2SAT 99
[2023-08-28] MEDS: PERCOCET 5MG/325MG TAB PO PRN (22:12)
[2023-08-28 22:45] VITALS: BP 135/87; TEMP 97; O2SAT 100
[2023-08-28 23:45] VITALS: BP 141/90; TEMP 97.2; O2SAT 99
[2023-08-29] MEDS: MORPHINE 4 MG/ML 1ML VIAL IV PRN (00:19)
[2023-08-29 00:45] VITALS: BP 141/88; TEMP 97.2; O2SAT 98
[2023-08-29 04:45] VITALS: BP 144/87; TEMP 97.3; O2SAT 99
[2023-08-29 05:59] LABS: BASO % 0.1 % (0.0-1.0); HEMATOCRIT 37.2 % (42.0-52.0); HEMOGLOBIN 12.1 g/dl (13.5-17.5); LYMPH % 14.4 % (24.0-44.0); MEAN CORPUSCULAR HEMOGLOBIN 22.5 pg (27.0-33.0); MEAN CORPUSCULAR HGB CONC 32.5 g/dl (32.0-36.5); MEAN CORPUSCULAR VOLUME 69.3 fl (80.0-96.0); MONO # 0.9 10^3/uL (0.0-0.8); MONO % 6.6 % (2.0-8.0); NEUTROPHILS # 10.9 10^3/uL (1.5-8.5); NEUTROPHILS % 78.4 % (36.0-66.0); PLATELET COUNT, AUTOMATED 190 10^3/uL (150-450); RED BLOOD COUNT 5.37 10^6/uL (4.30-6.10); WHITE BLOOD COUNT 13.9 10^3/uL (4.0-10.0)
[2023-08-29 06:25] LABS: BLOOD UREA NITROGEN 23 MG/DL (9-23); CALCIUM LEVEL 8.3 MG/DL (8.3-10.6); CARBON DIOXIDE LEVEL 27 MMOL/L (20-31); CHLORIDE LEVEL 105 MMOL/L (98-107); CREATININE FOR GFR 1.39 MG/DL (0.70-1.30); GLOMERULAR FILTRATION RATE > 60.0 (>49); GLUCOSE, FASTING 108 MG/DL (74-106); POTASSIUM SERUM 5.2 MMOL/L (3.5-5.1); SODIUM LEVEL 139 MMOL/L (136-145)
[2023-08-29] MEDS ORDERED: SIMETHICONE 80MG CHEW TAB PO PRN (08:25)
[2023-08-29 08:45] VITALS: BP 145/77; TEMP 98.1; O2SAT 98
[2023-08-29] MEDS: ALVIMOPAN 12 MG CAPSULE (ENTEREG) PO SCH (10:00)
[2023-08-29] MEDS: ENOXAPARIN 40MG/0.4ML SYRINGE (J1650 PER 10MG) SC SCH (10:01)
[2023-08-29] MEDS: METOPROLOL TART 25 MG TABLET PO SCH (10:01)
[2023-08-29 12:00] VITALS: BP 144/80; TEMP 98.1; O2SAT 95
[2023-08-29 22:00] VITALS: BP 145/83; TEMP 97.9
[2023-08-30 04:00] VITALS: BP 117/67; TEMP 98.1; O2SAT 94
[2023-08-30 07:39] LABS: BASO % 0.4 % (0.0-1.0); EOS # 0.1 10^3/uL (0.0-0.5); EOS % 1.7 % (0.0-3.0); HEMATOCRIT 32.6 % (42.0-52.0); HEMOGLOBIN 10.7 g/dl (13.5-17.5); LYMPH # 2.3 10^3/uL (1.5-5.0); MEAN CORPUSCULAR HEMOGLOBIN 22.6 pg (27.0-33.0); MEAN CORPUSCULAR HGB CONC 32.8 g/dl (32.0-36.5); MEAN CORPUSCULAR VOLUME 68.8 fl (80.0-96.0); MONO # 0.7 10^3/uL (0.0-0.8); MONO % 9.6 % (2.0-8.0); NEUTROPHILS % 55.9 % (36.0-66.0); PLATELET COUNT, AUTOMATED 181 10^3/uL (150-450); RED BLOOD COUNT 4.74 10^6/uL (4.30-6.10); WHITE BLOOD COUNT 7.2 10^3/uL (4.0-10.0)
[2023-08-30 08:24] LABS: BLOOD UREA NITROGEN 15 MG/DL (9-23); CALCIUM LEVEL 8.2 MG/DL (8.3-10.6); CARBON DIOXIDE LEVEL 26 MMOL/L (20-31); CHLORIDE LEVEL 109 MMOL/L (98-107); CREATININE FOR GFR 0.85 MG/DL (0.70-1.30); GLOMERULAR FILTRATION RATE > 60.0 (>49); GLUCOSE, FASTING 95 MG/DL (74-106); POTASSIUM SERUM 4.4 MMOL/L (3.5-5.1); SODIUM LEVEL 141 MMOL/L (136-145)
[2023-08-30 12:00] VITALS: BP 154/95; TEMP 97.5; O2SAT 95
[2023-08-30] MEDS: PERCOCET 5MG/325MG TAB PO PRN (18:12)
[2023-08-30] MEDS: CelecoXIB (CeleBREX) 100 MG CAP PO SCH (21:09)
[2023-08-30 22:00] VITALS: BP 164/96; TEMP 97.9; O2SAT 95
[2023-08-31 05:56] LABS: BASO % 0.4 % (0.0-1.0); EOS # 0.2 10^3/uL (0.0-0.5); HEMATOCRIT 31.6 % (42.0-52.0); HEMOGLOBIN 10.5 g/dl (13.5-17.5); LYMPH % 42.9 % (24.0-44.0); MEAN CORPUSCULAR HEMOGLOBIN 22.9 pg (27.0-33.0); MEAN CORPUSCULAR HGB CONC 33.2 g/dl (32.0-36.5); MEAN CORPUSCULAR VOLUME 68.8 fl (80.0-96.0); MONO # 0.7 10^3/uL (0.0-0.8); MONO % 10.3 % (2.0-8.0); NEUTROPHILS % 43.1 % (36.0-66.0); PLATELET COUNT, AUTOMATED 193 10^3/uL (150-450); RED BLOOD COUNT 4.59 10^6/uL (4.30-6.10)
[2023-08-31 06:00] VITALS: BP 164/98; TEMP 97.7; O2SAT 96
[2023-08-31 06:26] LABS: BLOOD UREA NITROGEN 10 MG/DL (9-23); CALCIUM LEVEL 8.2 MG/DL (8.3-10.6); CARBON DIOXIDE LEVEL 28 MMOL/L (20-31); CHLORIDE LEVEL 108 MMOL/L (98-107); CREATININE FOR GFR 0.82 MG/DL (0.70-1.30); GLOMERULAR FILTRATION RATE > 60.0 (>49); GLUCOSE, FASTING 93 MG/DL (74-106); POTASSIUM SERUM 4.4 MMOL/L (3.5-5.1); SODIUM LEVEL 141 MMOL/L (136-145)
[2023-08-31 08:55] VITALS: BP 167/97
[2023-08-31] MEDS ORDERED: PERCOCET PO (10:17)
== END 2023-08-31 12:00 | disposition home or self-care (01) | DRG 221 ==
LOC: M OR 11:47 → EDSTATUS 13:25 → M MS5PR 19:40
PROVIDERS: ADMIT Surgery; ATTEND Surgery
PROC: 8E0W4CZ Robotic Assisted Procedure of Trunk Region, Percutaneous Endoscopic Approach (ICD-10-PCS; 2023-08-28)
PROC: 0DBF4ZZ Excision of Right Large Intestine, Percutaneous Endoscopic Approach (ICD-10-PCS; principal; 2023-08-28 13:25)
DX: C18.3 Malignant neoplasm of hepatic flexure (principal); C78.6 Secondary malignant neoplasm of retroperitoneum and peritoneum; C78.7 Secondary malignant neoplasm of liver and intrahepatic bile duct; Z91.013 Allergy to seafood

== ENCOUNTER → 2023-10-16 | Outpatient (CLI) | payer BC ==
[~2023-10-16] MED LIST changes: +PERCOCET PO
[2023-10-16 19:16] LABS: BASO % 0.3 % (0.0-1.0); EOS # 0.1 10^3/uL (0.0-0.5); EOS % 2.3 % (0.0-3.0); HEMATOCRIT 36.7 % (42.0-52.0); LYMPH % 49.5 % (24.0-44.0); MEAN CORPUSCULAR HEMOGLOBIN 23.6 pg (27.0-33.0); MEAN CORPUSCULAR HGB CONC 32.7 g/dl (32.0-36.5); MEAN CORPUSCULAR VOLUME 72.1 fl (80.0-96.0); MONO # 0.6 10^3/uL (0.0-0.8); MONO % 9.2 % (2.0-8.0); NEUTROPHILS # 2.4 10^3/uL (1.5-8.5); NEUTROPHILS % 38.7 % (36.0-66.0); PLATELET COUNT, AUTOMATED 266 10^3/uL (150-450); RED BLOOD COUNT 5.09 10^6/uL (4.30-6.10); WHITE BLOOD COUNT 6.1 10^3/uL (4.0-10.0)
[2023-10-16 19:31] LABS: ALBUMIN 3.5 G/DL (3.2-5.2); ALKALINE PHOSPHATASE 108 U/L (46-116); ALT/SGPT 13 U/L (7.0-40); AST/SGOT < 8 U/L (<34); BILIRUBIN,TOTAL 0.3 MG/DL (0.3-1.2); BLOOD UREA NITROGEN 14 MG/DL (9-23); CALCIUM LEVEL 9.4 MG/DL (8.3-10.6); CARBON DIOXIDE LEVEL 29 MMOL/L (20-31); CHLORIDE LEVEL 104 MMOL/L (98-107); CREATININE FOR GFR 0.88 MG/DL (0.70-1.30); GLOMERULAR FILTRATION RATE > 60.0 (>49); GLUCOSE, FASTING 290 MG/DL (74-106); POTASSIUM SERUM 4.4 MMOL/L (3.5-5.1); SODIUM LEVEL 138 MMOL/L (136-145); TOTAL PROTEIN 6.9 G/DL (5.7-8.2)
[2023-10-16 19:39] LABS: CARCINOEMBRYONIC ANTIGEN < 2.0 NG/ML (<2.5)
== END ==
LOC: M LAB 17:39
PROVIDERS: ATTEND Internal Medicine Medical Oncology
DX: C18.9 Malignant neoplasm of colon, unspecified (principal)

== ENCOUNTER → 2023-11-13 | Outpatient (CLI) | payer BC ==
[~2023-11-13] MED LIST changes: +AMOX875T
[2023-11-13 19:14] LABS: BASO % 0.5 % (0.0-1.0); EOS # 0.1 10^3/uL (0.0-0.5); EOS % 1.6 % (0.0-3.0); HEMATOCRIT 38.4 % (42.0-52.0); HEMOGLOBIN 13.3 g/dl (13.5-17.5); LYMPH # 3.2 10^3/uL (1.5-5.0); LYMPH % 49.9 % (24.0-44.0); MEAN CORPUSCULAR HEMOGLOBIN 25.1 pg (27.0-33.0); MEAN CORPUSCULAR HGB CONC 34.6 g/dl (32.0-36.5); MEAN CORPUSCULAR VOLUME 72.6 fl (80.0-96.0); MONO # 0.7 10^3/uL (0.0-0.8); MONO % 10.5 % (2.0-8.0); NEUTROPHILS # 2.4 10^3/uL (1.5-8.5); NEUTROPHILS % 36.7 % (36.0-66.0); PLATELET COUNT, AUTOMATED 252 10^3/uL (150-450); RED BLOOD COUNT 5.29 10^6/uL (4.30-6.10); WHITE BLOOD COUNT 6.4 10^3/uL (4.0-10.0)
[2023-11-13 22:27] LABS: ALBUMIN 3.8 G/DL (3.2-5.2); ALKALINE PHOSPHATASE 114 U/L (46-116); ALT/SGPT 15 U/L (7.0-40); AST/SGOT 10 U/L (<34); BILIRUBIN,TOTAL 0.3 MG/DL (0.3-1.2); BLOOD UREA NITROGEN 20 MG/DL (9-23); CALCIUM LEVEL 9.8 MG/DL (8.3-10.6); CARBON DIOXIDE LEVEL 28 MMOL/L (20-31); CHLORIDE LEVEL 96 MMOL/L (98-107); CREATININE FOR GFR 0.95 MG/DL (0.70-1.30); GLOMERULAR FILTRATION RATE > 60.0 (>49); GLUCOSE, FASTING 468 MG/DL (74-106); POTASSIUM SERUM 4.5 MMOL/L (3.5-5.1); SODIUM LEVEL 130 MMOL/L (136-145); TOTAL PROTEIN 7.1 G/DL (5.7-8.2)
== END ==
LOC: M LAB 18:06
PROVIDERS: ATTEND Specialist
DX: C18.9 Malignant neoplasm of colon, unspecified (principal)

== ENCOUNTER → 2023-11-27 | Outpatient (CLI) | payer BC ==
[~2023-11-27] MED LIST changes: +METF10004 PO
[2023-11-27 18:30] LABS: BASO % 0.5 % (0.0-1.0); EOS # 0.1 10^3/uL (0.0-0.5); EOS % 2.2 % (0.0-3.0); HEMOGLOBIN 13.3 g/dl (13.5-17.5); LYMPH # 2.6 10^3/uL (1.5-5.0); LYMPH % 47.3 % (24.0-44.0); MEAN CORPUSCULAR HEMOGLOBIN 26.6 pg (27.0-33.0); MEAN CORPUSCULAR HGB CONC 35.9 g/dl (32.0-36.5); MONO # 0.6 10^3/uL (0.0-0.8); MONO % 11.4 % (2.0-8.0); NEUTROPHILS # 2.1 10^3/uL (1.5-8.5); NEUTROPHILS % 37.3 % (36.0-66.0); PLATELET COUNT, AUTOMATED 242 10^3/uL (150-450); WHITE BLOOD COUNT 5.5 10^3/uL (4.0-10.0)
[2023-11-27 19:18] LABS: ALBUMIN 3.7 G/DL (3.2-5.2); ALKALINE PHOSPHATASE 117 U/L (46-116); ALT/SGPT 14 U/L (7.0-40); AST/SGOT 9 U/L (<34); BILIRUBIN,TOTAL 0.3 MG/DL (0.3-1.2); BLOOD UREA NITROGEN 17 MG/DL (9-23); CALCIUM LEVEL 9.6 MG/DL (8.3-10.6); CARBON DIOXIDE LEVEL 28 MMOL/L (20-31); CHLORIDE LEVEL 94 MMOL/L (98-107); CREATININE FOR GFR 0.82 MG/DL (0.70-1.30); GLOMERULAR FILTRATION RATE > 60.0 (>49); GLUCOSE, FASTING 574 MG/DL (74-106); POTASSIUM SERUM 4.5 MMOL/L (3.5-5.1); SODIUM LEVEL 128 MMOL/L (136-145); TOTAL PROTEIN 6.7 G/DL (5.7-8.2)
== END ==
LOC: M LAB 17:59
PROVIDERS: ATTEND Specialist
DX: C18.9 Malignant neoplasm of colon, unspecified (principal)

== ENCOUNTER → 2023-12-10 | Outpatient (CLI) | payer BC ==
[~2023-12-10] MED LIST changes: +GASTROGRAFIN SOLUTION 30ML As Ordered ONE; +ISOVUE-370 76% 100ML VIAL As Ordered ONE
== END ==
LOC: M RAD 06:58
PROVIDERS: ATTEND Dietitian, Registered
DX: C18.9 Malignant neoplasm of colon, unspecified (principal)

== ENCOUNTER → 2023-12-11 | Outpatient (CLI) | payer BC ==
[~2023-12-11] MED LIST changes: +DAPA10TA5; -GASTROGRAFIN SOLUTION 30ML As Ordered ONE; -ISOVUE-370 76% 100ML VIAL As Ordered ONE
[2023-12-11 17:56] LABS: BASO % 0.6 % (0.0-1.0); EOS # 0.1 10^3/uL (0.0-0.5); EOS % 1.4 % (0.0-3.0); HEMATOCRIT 38.5 % (42.0-52.0); HEMOGLOBIN 13.8 g/dl (13.5-17.5); LYMPH # 2.5 10^3/uL (1.5-5.0); LYMPH % 39.3 % (24.0-44.0); MEAN CORPUSCULAR HEMOGLOBIN 27.4 pg (27.0-33.0); MEAN CORPUSCULAR HGB CONC 35.8 g/dl (32.0-36.5); MEAN CORPUSCULAR VOLUME 76.4 fl (80.0-96.0); MONO # 0.9 10^3/uL (0.0-0.8); MONO % 14.2 % (2.0-8.0); NEUTROPHILS # 2.8 10^3/uL (1.5-8.5); NEUTROPHILS % 43.7 % (36.0-66.0); PLATELET COUNT, AUTOMATED 229 10^3/uL (150-450); RED BLOOD COUNT 5.04 10^6/uL (4.30-6.10); WHITE BLOOD COUNT 6.4 10^3/uL (4.0-10.0)
[2023-12-11 18:33] LABS: ALBUMIN 3.8 G/DL (3.2-5.2); ALKALINE PHOSPHATASE 101 U/L (46-116); ALT/SGPT 20 U/L (7.0-40); AST/SGOT 10 U/L (<34); BILIRUBIN,TOTAL 0.3 MG/DL (0.3-1.2); BLOOD UREA NITROGEN 24 MG/DL (9-23); CALCIUM LEVEL 9.7 MG/DL (8.3-10.6); CARBON DIOXIDE LEVEL 28 MMOL/L (20-31); CHLORIDE LEVEL 93 MMOL/L (98-107); CREATININE FOR GFR 0.95 MG/DL (0.70-1.30); GLOMERULAR FILTRATION RATE > 60.0 (>49); GLUCOSE, FASTING 531 MG/DL (74-106); POTASSIUM SERUM 4.6 MMOL/L (3.5-5.1); SODIUM LEVEL 127 MMOL/L (136-145); TOTAL PROTEIN 6.8 G/DL (5.7-8.2)
[2023-12-14 08:43] LABS: MAGNESIUM LEVEL 1.8 MG/DL (1.8-2.4)
== END ==
LOC: M LAB 17:25
PROVIDERS: ATTEND Internal Medicine Medical Oncology
DX: C18.9 Malignant neoplasm of colon, unspecified (principal)

== ENCOUNTER 2023-12-23 07:34 | Outpatient (CLI) | payer BC ==
[~2023-12-23] VITALS: Ht 175.3 cm; Wt 90.4 kg
[2023-12-23 07:40] VITALS: BP 169/91; O2SAT 98
[2023-12-23] MEDS: diphenhydrAMINE 25MG CAP PO ONE (08:24)
[2023-12-23] MEDS: ACETAMINOPHEN TAB 650MG DOSE (2X325MG) PO ONE (08:24)
[2023-12-23] MEDS: IRON SUCROSE 300 MG in NS 250 ML OVER 90 MIN. IV ONE (08:33)
[2023-12-23 10:10] VITALS: BP 140/86; O2SAT 97
[2023-12-23] MEDS: SODIUM CHLORIDE 0.9% INJ 10 ML SYR IV PRN (10:15)
[2023-12-23] MEDS ORDERED: MAGICMW SSP (11:14)
== END 2023-12-23 10:15 ==
LOC: M INFU 07:34
PROVIDERS: ATTEND Internal Medicine Medical Oncology
DX: D50.9 Iron deficiency anemia, unspecified (principal); Z91.013 Allergy to seafood
CPT/HCPCS: 96365; 96366; 96367; J1642; J1756

== ENCOUNTER → 2023-12-28 | Outpatient (CLI) | payer BC ==
[~2023-12-28] MED LIST changes: +MAGICMW SSP
[2023-12-28 18:37] LABS: BASO % 0.5 % (0.0-1.0); EOS # 0.1 10^3/uL (0.0-0.5); HEMATOCRIT 40.2 % (42.0-52.0); HEMOGLOBIN 14.4 g/dl (13.5-17.5); LYMPH # 2.4 10^3/uL (1.5-5.0); LYMPH % 39.4 % (24.0-44.0); MEAN CORPUSCULAR HEMOGLOBIN 28.9 pg (27.0-33.0); MEAN CORPUSCULAR HGB CONC 35.8 g/dl (32.0-36.5); MEAN CORPUSCULAR VOLUME 80.6 fl (80.0-96.0); MONO # 0.6 10^3/uL (0.0-0.8); MONO % 10.6 % (2.0-8.0); NEUTROPHILS # 2.8 10^3/uL (1.5-8.5); PLATELET COUNT, AUTOMATED 193 10^3/uL (150-450); RED BLOOD COUNT 4.99 10^6/uL (4.30-6.10)
[2023-12-28 18:47] LABS: APPEARANCE, URINE CLEAR (CLEAR); BACTERIA, URINE AUTO NEGATIVE (NEGATIVE); BILIRUBIN, URINE AUTO NEGATIVE (NEGATIVE); BLOOD, URINE BLOOD NEGATIVE (NEGATIVE); COLOR, URINE STRAW (YELLOW); GLUCOSE, URINE (UA) AUTO 3+ mg/dL (NEGATIVE); KETONE, URINE AUTO TRACE mg/dL (NEGATIVE); LEUKOCYTE ESTERASE, URINE AUTO NEGATIVE (NEGATIVE); NITRITE, URINE AUTO NEGATIVE (NEGATIVE); PROTEIN, URINE AUTO NEGATIVE (NEGATIVE); RBC, URINE AUTO 0 /HPF (0-3); SPECIFIC GRAVITY URINE AUTO 1.023 (1.002-1.035); SQUAMOUS EPITHELIAL CELL UR AU 0 /HPF (0-6); UROBILINOGEN, URINE AUTO 0.2 mg/dL (0.0-2.0); WBC, URINE AUTO 0 /HPF (0-3)
[2023-12-28 19:35] LABS: ALBUMIN 3.6 G/DL (3.2-5.2); ALKALINE PHOSPHATASE 103 U/L (46-116); ALT/SGPT 31 U/L (7.0-40); AST/SGOT 16 U/L (<34); BILIRUBIN,TOTAL 0.2 MG/DL (0.3-1.2); BLOOD UREA NITROGEN 22 MG/DL (9-23); CALCIUM LEVEL 9.9 MG/DL (8.3-10.6); CARBON DIOXIDE LEVEL 28 MMOL/L (20-31); CHLORIDE LEVEL 92 MMOL/L (98-107); CREATININE FOR GFR 0.88 MG/DL (0.70-1.30); GLOMERULAR FILTRATION RATE > 60.0 (>49); GLUCOSE, FASTING 435 MG/DL (74-106); MAGNESIUM LEVEL 2.1 MG/DL (1.8-2.4); POTASSIUM SERUM 4.4 MMOL/L (3.5-5.1); SODIUM LEVEL 129 MMOL/L (136-145); TOTAL PROTEIN 6.8 G/DL (5.7-8.2)
== END ==
LOC: M LAB 17:23
PROVIDERS: ATTEND Dietitian, Registered
DX: C18.9 Malignant neoplasm of colon, unspecified (principal)

== ENCOUNTER → 2024-06-07 | Outpatient (CLI) | payer BC ==
[~2024-06-07] MED LIST changes: +CAPE1TAB2 PO; +EQL50TAB2 PO; +ISOVUE-370 76% 100ML VIAL As Ordered ONE; +SEMA14TA2 PO; +SEMA3TAB4; +SEMA7TAB2
== END ==
LOC: M RAD 13:28
PROVIDERS: ATTEND Specialist
DX: C18.9 Malignant neoplasm of colon, unspecified (principal)

== ENCOUNTER → 2024-11-15 | Outpatient (CLI) | payer BC ==
[~2024-11-15] MED LIST changes: +ACET-897 PO; -DAPA10TA5; +DAPA10TA5 PO; -EQL50TAB2 PO; +FAMO1TAB11 PO; -ISOVUE-370 76% 100ML VIAL As Ordered ONE; +VITA1TAB82 PO
== END ==
LOC: M PLARAD 08:14
DX: C18.4 Malignant neoplasm of transverse colon (principal); C49.A2 Gastrointestinal stromal tumor of stomach
CPT/HCPCS: 78815; A9552

== ENCOUNTER 2024-11-19 19:43 | Inpatient (IN) | payer BC ==
[~2024-11-19] VITALS: Ht 175.3 cm; Wt 97.1 kg
[~2024-11-19 19:43] MED LIST changes: -ACET-897 PO; -FAMO1TAB11 PO
[2024-11-19] MEDS ORDERED: VANCOMYCIN HCL 1,000 MG, VIAL MATE ADAPTER 1 EACH in NS 250 ML IV ONE (20:40)
[2024-11-19] MEDS: CEFEPIME HCL 2 GM in DEXTROSE 5% (D5W) ADV/MINI-BAG 50 ML IV ONE (20:40)
[2024-11-19 20:42] LABS: PLATELET COUNT, AUTOMATED 237 10^3/uL (150-450)
[2024-11-19 20:48] LABS: BASO # 0.0 10^3/uL (0.0-0.2); BASO % 0.2 % (0.0-1.0); EOS # 0.1 10^3/uL (0.0-0.5); EOS % 0.6 % (0.0-3.0); LYMPH # 2.8 10^3/uL (1.5-5.0); LYMPH % 30.4 % (24.0-44.0); MONO # 1.6 10^3/uL (0.0-0.8); MONO % 16.7 % (2.0-8.0); NEUTROPHILS # 4.8 10^3/uL (1.5-8.5); NEUTROPHILS % 51.9 % (36.0-66.0)
[2024-11-19 21:06] LABS: ALT/SGPT 26 U/L (7.0-40); AST/SGOT 20 U/L (<34); CALCIUM LEVEL 9.4 MG/DL (8.3-10.6); CARBON DIOXIDE LEVEL 27 MMOL/L (20-31); CHLORIDE LEVEL 102 MMOL/L (98-107); CREATININE FOR GFR 0.92 MG/DL (0.70-1.30); GLOMERULAR FILTRATION RATE > 90.0 (>49); POTASSIUM SERUM 4.0 MMOL/L (3.5-5.1); SODIUM LEVEL 140 MMOL/L (136-145)
[2024-11-19 21:07] LABS: KETONE, URINE AUTO RFX NEGATIVE (NEGATIVE); LEUKOCYTE ESTERASE UR AUTO RFX NEGATIVE (NEGATIVE); NITRITE, URINE AUTO RFX NEGATIVE (NEGATIVE); RBC, URINE AUTO RFX 0 /HPF (0-3); SQUAM EPITHELIAL CELL UR AURFX 1 /HPF (0-6); WBC, URINE AUTO RFX 0 /HPF (0-3)
[2024-11-19] MEDS: VANCOMYCIN HCL 2,000 MG, VIAL MATE ADAPTER 1 EACH in NS 500 ML IV ONE (21:10)
[2024-11-19] MEDS: LR 1,000 ML IV ONE (21:11)
[2024-11-19 21:30] LABS: ALT/SGPT 26 U/L (7.0-40); AST/SGOT 21 U/L (<34); CALCIUM LEVEL 9.4 MG/DL (8.3-10.6); CARBON DIOXIDE LEVEL 28 MMOL/L (20-31); CHLORIDE LEVEL 102 MMOL/L (98-107); CREATININE FOR GFR 0.90 MG/DL (0.70-1.30); GLOMERULAR FILTRATION RATE > 90.0 (>49); POTASSIUM SERUM 4.0 MMOL/L (3.5-5.1); SODIUM LEVEL 139 MMOL/L (136-145)
[2024-11-19] MEDS: ACETAMINOPHEN 325 MG TAB PO ONE (22:12)
[2024-11-20] VITALS (11 sets, daily range): BP systolic 141–156; BP diastolic 90–95; TEMP 97.7–101.6; O2SAT 92–94
[2024-11-20 00:58] LABS: ERYTHROCYTE SEDIMENTATION RATE 29 mm/hr (0-20)
[2024-11-20 01:07] LABS: MAGNESIUM LEVEL 1.6 MG/DL (1.8-2.4)
[2024-11-20 01:09] LABS: C REACTIVE PROTEIN QUANTITATIV 7.39 MG/DL (<1.0)
[2024-11-20 01:10] LABS: MONO SCRN NEGATIVE (NEGATIVE)
[2024-11-20] MEDS ORDERED: SODIUM CHLORIDE 0.9% INJ 10 ML SYR IV PRN ×2 (01:40→04:20)
[2024-11-20] MEDS ORDERED: MOM 30 ML SUSPENSION UDC PO PRN (01:50)
[2024-11-20] MEDS ORDERED: MAALOX 30 ML SUSP *UDC PO PRN (01:50)
[2024-11-20] MEDS ORDERED: HOME MED LIST COMPLETE! XX SCH (02:20)
[2024-11-20] MEDS ORDERED: ACET-897 PO (02:20)
[2024-11-20] MEDS ORDERED: FAMO1TAB11 PO (02:20)
[2024-11-20 03:19] LABS: D-DIMER QUANT 1.12 ug/mL (<0.5); INR 1.21
[2024-11-20] MEDS: MAGNESIUM OXIDE 400 MG TAB PO ONE (03:19)
[2024-11-20] MEDS ORDERED: ISOVUE-370 76% 100 ML VIAL As Ordered ONE (03:42)
[2024-11-20] MEDS ORDERED: HEPARIN LOCK FLUSH 100 UNITS/ML 3 ML SYRINGE IV PRN (04:20)
[2024-11-20] MEDS: ACETAMINOPHEN 325 MG TAB PO PRN (05:53)
[2024-11-20] MEDS: ENOXAPARIN 40 MG/0.4 ML SYRINGE (J1650 PER 10MG) SC SCH (08:05)
[2024-11-20] MEDS: VANCOMYCIN HCL 1,000 MG, VIAL MATE ADAPTER 1 EACH in NS 250 ML IV SCH (08:05)
[2024-11-20] MEDS: HEPARIN LOCK FLUSH 100 UNITS/ML 3 ML SYRINGE IV SCH (08:06)
[2024-11-20] MEDS: DICLOFENAC EPOLAMINE 1.3% PATCH TOP SCH (08:06)
[2024-11-20] MEDS: SODIUM CHLORIDE 0.9% INJ 10 ML SYR IV SCH (08:06)
[2024-11-20] MEDS: DOCUSATE SODIUM 100 MG CAPSULE PO SCH (08:06)
[2024-11-20] MEDS ORDERED: SODIUM CHLORIDE 0.9% INJ 10 ML SYR IV SCH (09:00)
[2024-11-20] MEDS ORDERED: HEPARIN LOCK FLUSH 100 UNITS/ML 3 ML SYRINGE IV SCH (09:00)
[2024-11-20] MEDS: CEFEPIME HCL 2 GM in DEXTROSE 5% (D5W) ADV/MINI-BAG 50 ML IV SCH (09:46)
[2024-11-20] MEDS ORDERED: PROHANCE 279.3MG/ML 5ML VIAL As Ordered ONE (15:00)
[2024-11-20] MEDS ORDERED: PROHANCE 279.3MG/ML 15ML VIAL As Ordered ONE (15:00)
[2024-11-20] MEDS: IBUPROFEN 400 MG TAB PO ONE (16:10)
[2024-11-21] VITALS (11 sets, daily range): BP systolic 122–151; BP diastolic 84–99; TEMP 97.5–102.6; O2SAT 93–97
[2024-11-21 06:59] LABS: PLATELET COUNT, AUTOMATED 202 10^3/uL (150-450)
[2024-11-21 07:22] LABS: MAGNESIUM LEVEL 1.8 MG/DL (1.8-2.4)
[2024-11-21 07:53] LABS: BASO # 0.0 10^3/uL (0.0-0.2); BASO % 0.3 % (0.0-1.0); EOS # 0.1 10^3/uL (0.0-0.5); EOS % 0.7 % (0.0-3.0); LYMPH # 1.4 10^3/uL (1.5-5.0); LYMPH % 13.8 % (24.0-44.0); MONO # 1.4 10^3/uL (0.0-0.8); MONO % 14.3 % (2.0-8.0); NEUTROPHILS # 6.8 10^3/uL (1.5-8.5); NEUTROPHILS % 69.7 % (36.0-66.0)
[2024-11-21] MEDS: VANCOMYCIN HCL 1,250 MG, VIAL MATE ADAPTER 1 EACH in NS 250 ML IV SCH (08:01)
[2024-11-21 08:06] LABS: ALT/SGPT 27 U/L (7.0-40); AST/SGOT 32 U/L (<34); CALCIUM LEVEL 8.7 MG/DL (8.3-10.6); CARBON DIOXIDE LEVEL 26 MMOL/L (20-31); CHLORIDE LEVEL 103 MMOL/L (98-107); CREATININE FOR GFR 0.76 MG/DL (0.70-1.30); GLOMERULAR FILTRATION RATE > 90.0 (>49); POTASSIUM SERUM 5.1 MMOL/L (3.5-5.1); SODIUM LEVEL 137 MMOL/L (136-145)
[2024-11-21] MEDS ORDERED: DEXTROSE 50% 50 ML SYRINGE IV PRN (09:10)
[2024-11-21] MEDS ORDERED: GLUCAGON INJ 1 MG VIAL SC PRN (09:10)
[2024-11-21] MEDS ORDERED: GLUCOSE 4 GM CHEW PO PRN (09:10)
[2024-11-21 09:36] LABS: C REACTIVE PROTEIN QUANTITATIV 21.59 MG/DL (<1.0)
[2024-11-21] MEDS: DAPAGLIFLOZIN PROPANEDIOL 10 MG TABLET PO SCH (11:15)
[2024-11-21] MEDS: FAMOTIDINE 20 MG TAB PO SCH (11:15)
[2024-11-21] MEDS: INSULIN LISPRO (NovoLOG) PER UNIT SC SCH ×2 (12:00→21:00)
[2024-11-21] MEDS: IRBESARTAN 150 MG TAB PO SCH (12:59)
[2024-11-21] MEDS: IBUPROFEN 400 MG TAB PO ONE (14:42)
[2024-11-22] VITALS (9 sets, daily range): BP systolic 138–144; BP diastolic 87–93; TEMP 97.8–99.9; O2SAT 95–97
[2024-11-22 07:03] LABS: BASO # 0.0 10^3/uL (0.0-0.2); BASO % 0.4 % (0.0-1.0); EOS # 0.1 10^3/uL (0.0-0.5); EOS % 1.8 % (0.0-3.0); LYMPH # 1.8 10^3/uL (1.5-5.0); LYMPH % 23.0 % (24.0-44.0); MONO # 1.1 10^3/uL (0.0-0.8); MONO % 14.1 % (2.0-8.0); NEUTROPHILS # 4.8 10^3/uL (1.5-8.5); NEUTROPHILS % 60.3 % (36.0-66.0); PLATELET COUNT, AUTOMATED 198 10^3/uL (150-450)
[2024-11-22 07:41] LABS: ALT/SGPT 24 U/L (7.0-40); AST/SGOT 26 U/L (<34); CALCIUM LEVEL 8.9 MG/DL (8.3-10.6); CARBON DIOXIDE LEVEL 26 MMOL/L (20-31); CHLORIDE LEVEL 106 MMOL/L (98-107); CREATININE FOR GFR 0.74 MG/DL (0.70-1.30); GLOMERULAR FILTRATION RATE > 90.0 (>49); POTASSIUM SERUM 4.4 MMOL/L (3.5-5.1); SODIUM LEVEL 142 MMOL/L (136-145)
[2024-11-22 09:32] LABS: C REACTIVE PROTEIN QUANTITATIV 21.52 MG/DL (<1.0)
[2024-11-22 09:32] LABS: CPK CREATINE PHOSPHOKINASE 85 U/L (46-171)
[2024-11-22] MEDS: amLODIPine 5 MG TAB PO SCH (16:04)
[2024-11-22] MEDS: CEFEPIME HCL 2 GM in DEXTROSE 5% (D5W) ADV/MINI-BAG 50 ML IV SCH (22:01)
[2024-11-22] MEDS: HEPARIN LOCK FLUSH 100 UNITS/ML 3 ML SYRINGE IV PRN (22:42)
[2024-11-23] VITALS (8 sets, daily range): BP systolic 128–163; BP diastolic 88–98; TEMP 97.7–100; O2SAT 94–100
[2024-11-23 08:07] LABS: BASO # 0.0 10^3/uL (0.0-0.2); BASO % 0.3 % (0.0-1.0); EOS # 0.2 10^3/uL (0.0-0.5); EOS % 2.3 % (0.0-3.0); LYMPH # 2.1 10^3/uL (1.5-5.0); LYMPH % 24.1 % (24.0-44.0); MONO # 1.3 10^3/uL (0.0-0.8); MONO % 14.5 % (2.0-8.0); NEUTROPHILS # 5.0 10^3/uL (1.5-8.5); NEUTROPHILS % 58.6 % (36.0-66.0); PLATELET COUNT, AUTOMATED 218 10^3/uL (150-450)
[2024-11-23 08:38] LABS: ALT/SGPT 25 U/L (7.0-40); AST/SGOT 20 U/L (<34); CALCIUM LEVEL 8.4 MG/DL (8.3-10.6); CARBON DIOXIDE LEVEL 28 MMOL/L (20-31); CHLORIDE LEVEL 104 MMOL/L (98-107); CREATININE FOR GFR 0.76 MG/DL (0.70-1.30); GLOMERULAR FILTRATION RATE > 90.0 (>49); POTASSIUM SERUM 3.9 MMOL/L (3.5-5.1); SODIUM LEVEL 142 MMOL/L (136-145)
[2024-11-23 20:31] LABS: LYME TOTAL ANTIBODY CIA <= 0.90 Index (<=0.90)
[2024-11-24 01:12] VITALS: BP 149/91; TEMP 98.9; O2SAT 96
[2024-11-24 04:09] VITALS: BP 140/85; TEMP 99.4; O2SAT 95
[2024-11-24 06:45] LABS: PLATELET COUNT, AUTOMATED 237 10^3/uL (150-450)
[2024-11-24 07:27] LABS: CALCIUM LEVEL 8.5 MG/DL (8.3-10.6); CARBON DIOXIDE LEVEL 26 MMOL/L (20-31); CHLORIDE LEVEL 105 MMOL/L (98-107); CREATININE FOR GFR 0.68 MG/DL (0.70-1.30); GLOMERULAR FILTRATION RATE > 90.0 (>49); POTASSIUM SERUM 4.3 MMOL/L (3.5-5.1); SODIUM LEVEL 143 MMOL/L (136-145)
[2024-11-24 08:00] VITALS: BP 144/86; TEMP 97.2; O2SAT 97
[2024-11-24 08:27] VITALS: BP 144/86
[2024-11-24 09:32] LABS: C REACTIVE PROTEIN QUANTITATIV 15.09 MG/DL (<1.0)
[2024-11-24 12:00] VITALS: BP 144/86; TEMP 97.3; O2SAT 98
[2024-11-24 16:00] VITALS: BP 154/86; TEMP 97.5; O2SAT 98
[2024-11-24] MEDS ORDERED: AVAP150T31 PO (16:57)
[2024-11-24] MEDS ORDERED: CIPR500T39 PO (16:57)
[2024-11-24] MEDS: CIPROFLOXACIN 500 MG TABLET PO SCH (17:34)
[2024-11-25 19:42] LABS: BORRELIA SPECIES DNA NOT DETECTED (NOT DETECT)
== END 2024-11-24 17:38 | disposition home or self-care (01) | DRG 281 ==
LOC: M ED 19:43 → M ED INP 11-20 03:33 → M MSPAV 11-20 05:34
PROVIDERS: ADMIT Student in an Organized Health Care Education/Training Program; ATTEND Internal Medicine Nephrology
DX: C78.7 Secondary malignant neoplasm of liver and intrahepatic bile duct (principal); C18.4 Malignant neoplasm of transverse colon; I10 Essential (primary) hypertension; D64.9 Anemia, unspecified; E11.9 Type 2 diabetes mellitus without complications; R50.81 Fever presenting with conditions classified elsewhere; M62.838 Other muscle spasm; M25.512 Pain in left shoulder; K21.9 Gastro-esophageal reflux disease without esophagitis; J02.9 Acute pharyngitis, unspecified; Z66 Do not resuscitate; Z79.899 Other long term (current) drug therapy; Z91.013 Allergy to seafood; Z90.49 Acquired absence of other specified parts of digestive tract; Z79.69 Long term (current) use of other immunomodulators and immunosuppressants

== ENCOUNTER → 2025-02-27 | Outpatient (CLI) | payer BC ==
[~2025-02-27] MED LIST changes: +ACET-897 PO; +AVAP150T31 PO; +CIPR500T39 PO; +FAMO1TAB11 PO; +ISOVUE-370 76% 100 ML VIAL As Ordered ONE
== END ==
LOC: M RAD 13:14
PROVIDERS: ATTEND Physician Assistant
DX: C18.4 Malignant neoplasm of transverse colon (principal)

== ENCOUNTER → 2025-03-07 | Outpatient (REF) | payer BC ==
[~2025-03-07] MED LIST changes: -ISOVUE-370 76% 100 ML VIAL As Ordered ONE
== END ==
LOC: M LAB REF 10:22
PROVIDERS: ATTEND Physician Assistant
DX: Z79.899 Other long term (current) drug therapy (principal)

== ENCOUNTER → 2025-03-21 | Outpatient (REF) | payer BC ==
[2025-03-21 16:54] LABS: TOTAL PROTEIN 24 HOUR URINE 836.0 MG/24HR (50-80); URINE TOTAL PROTEIN 41.8 MG/DL (0-14)
== END ==
LOC: M LAB REF 11:15
PROVIDERS: ATTEND Nurse Practitioner Family
DX: R80.9 Proteinuria, unspecified (principal)